=== PATIENT | male | born 1975 | race Two or more races ===

== ENCOUNTER 2019-02-17 13:07 | Emergency (ER) | payer OTHER ==
[~2019-02-17] VITALS: Ht 172.7 cm; Wt 140.2 kg
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
[2019-02-17] MEDS ORDERED: LIDOCAINE 2%-EPI 1:100,000 30 ML VIAL ONE (13:32)
[2019-02-17] MEDS ORDERED: ONDANSETRON 4 MG TAB.RAPDIS ONE (13:53)
[2019-02-17] MEDS ORDERED: HYDROCODONE/APAP 5/325MG 1 EACH TABLET ONE (13:53)
[2019-02-17] MEDS ORDERED: ONDANSETRON 4 MG TAB.RAPDIS PO ONE (14:00)
[2019-02-17] MEDS ORDERED: HYDROCODONE/APAP 5/325MG 1 EACH TABLET PO ONE (14:00)
--- NOTE | 2019-02-17 15:06 | NUR ---
Patient discharged to home in stable condition. Written and verbal after care instructions given. Patient verbalizes understanding of instruction.
[2019-02-17 15:07] VITALS: BP 132/70
== END 2019-02-17 15:07 | disposition home or self-care (01) ==
LOC: ER 13:11
DX: S01.81XA Laceration without foreign body of other part of head, initial encounter (principal); I10 Essential (primary) hypertension; W22.8XXA Striking against or struck by other objects, initial encounter; Y93.89 Activity, other specified; Y92.89 Other specified places as the place of occurrence of the external cause; Y99.0 Civilian activity done for income or pay
CPT/HCPCS: 12015; 99283; A6402; A6403 ×2; J3490; Q0162

== ENCOUNTER 2019-02-18 10:43 | Emergency (ER) | payer OTHER ==
[~2019-02-18] VITALS: Ht 172.7 cm; Wt 136.1 kg
--- NOTE | 2019-02-18 10:55 | NUR ---
BIB FAMILY FOR RE-EVALUATION OF NECK PAIN, DIZZINESS AND SHOULDER BLADE PAIN W TIGHTNESS NOTED THIS MORNING. WAS SEEN AT [facility] YESTERDAY. TO ER BED 2, HOOKED TO MONITOR, CHANGED TO GOWN, PROVIDED W WARM BLANKET, AWAITING MD DUFF.
--- NOTE | 2019-02-18 11:25 | NUR ---
MOOKIE BRAGA AT BEDSIDE
[2019-02-18] MEDS ORDERED: KETOROLAC TROMETHAMINE INJ 30 MG/ML VIAL IM ONE (12:30)
[2019-02-18] MEDS ORDERED: KETOROLAC TROMETHAMINE 15 MG/ML VIAL ONE (12:35)
--- NOTE | 2019-02-18 12:40 | NUR ---
Patient discharged to home in stable condition. Written and verbal after care instructions given. Patient verbalizes understanding of instruction.
[2019-02-18 12:43] VITALS: BP 127/76
== END 2019-02-18 12:44 | disposition home or self-care (01) ==
LOC: ER 10:43
DX: S09.8XXA Other specified injuries of head, initial encounter (principal); R42 Dizziness and giddiness; I10 Essential (primary) hypertension; W22.8XXA Striking against or struck by other objects, initial encounter; Y93.89 Activity, other specified; Y92.89 Other specified places as the place of occurrence of the external cause; Y99.8 Other external cause status
CPT/HCPCS: 70450; 72125; 96372; 99284; J1885